=== PATIENT | female | born 1935 | race Caucasian/White ===

== ENCOUNTER 2022-10-23 06:53 | Inpatient (IN) | payer OTHER ==
[~2022-10-23] VITALS: Ht 147.3 cm; Wt 71.4 kg
[~2022-10-23 06:53] MED LIST: ASPI-492 PO; FURO20TA3 PO; LEVO88TA4 PO; LIS5T PO; NORT25CA PO; POT10T PO; SIMV-8 PO
[2022-10-23 07:35] LABS: Basophils # (auto) 0 10 ^3/uL (0-0.2); Basophils % (auto) 0.2 % (0.0-2.0); Eosinophils # (auto) 0.1 10 ^3/uL (0-0.8); Eosinophils % (auto) 0.8 % (0.0-7.0); Hematocrit 44.1 % (36.0-46.0); Hemoglobin 14.9 g/dL (12.2-16.2); Lymphocytes # (auto) 0.5 10 ^3/uL (0.4-5.4); Lymphocytes % (auto) 7.7 % (10.0-50.0); Mean Corpuscular Hemoglobin 31.7 pg (28.0-32.0); Mean Corpuscular Hgb Conc. 33.8 g/dL (32.0-36.0); Mean Corpuscular Volume 93.8 fL (80.0-100.0); Monocytes # (auto) 0.4 10 ^3/uL (0-1.3); Monocytes % (auto) 6.5 % (0.0-12.0); Neutrophils # (auto) 5.8 10 ^3/uL (1.6-8.6); Neutrophils % (auto) 84.8 % (37.0-80.0); Nucleated Red Blood Cells % 0.1 %; Red Cell Distribution Width 13.8 % (11.8-14.3); White Blood Cell 6.9 10^3/uL (4.4-10.8)
[2022-10-23 07:48] LABS: Albumin 3.2 g/dL (3.4-5.0); Calcium 8.5 mg/dL (8.5-10.1); Magnesium 1.9 mg/dL (1.6-2.6); Potassium 3.6 mmol/L (3.5-5.1)
[2022-10-23 07:51] LABS: BUN/Creatinine Ratio 28.1 (10.0-20.0); Bilirubin, Total 0.7 mg/dL (0.2-1.0); Total Protein 6.4 g/dL (6.4-8.2)
[2022-10-23] MEDS ORDERED: SODIUM CHLORIDE 0.9% 1,000 ML IV ONE ×2 (08:45→13:15)
[2022-10-23 11:33] LABS: Urine Bacteria NONE SEEN /hpf (None Seen); Urine Blood Negative /uL (Negative); Urine WBC 11 /hpf (0 - 5)
[2022-10-23] MEDS ORDERED: metroNIDAZOLE 500MG/100ML 100 ML IV ONE ×2 (12:00→20:00)
[2022-10-23] MEDS ORDERED: MECLIZINE HCL 25 MG TAB PO ONE (12:00)
[2022-10-23] MEDS ORDERED: diazePAM 5 MG TAB PO ONE (15:00)
[2022-10-23] MEDS ORDERED: ACETAMINOPHEN 325 MG TAB PO PRN (18:30)
[2022-10-23] MEDS ORDERED: ONDANSETRON HCL 4 MG/2 ML VIAL IV PRN (18:30)
[2022-10-23] MEDS ORDERED: PANTOPRAZOLE 40 MG/10 ML VIAL INJ IV ONE (18:30)
[2022-10-23] MEDS ORDERED: cefTRIAXone 1GM/50ML D5W 50 ML IV ONE (18:30)
[2022-10-23] MEDS ORDERED: levoFLOXacin 500MG 100 ML IV ONE (19:00)
[2022-10-23 19:18] LABS: Cholesterol 123 mg/dL (< 200); Triglycerides 51 mg/dL (< 150)
[2022-10-23 19:20] LABS: HDL Cholesterol 50 mg/dL (40-59); LDL Cholesterol 69 mg/dL (< 100)
[2022-10-23] MEDS: SODIUM CHLORIDE 0.9% 1,000 ML IV SCH (21:50)
[2022-10-23] MEDS: ATORVASTATIN 20 MG TAB PO SCH (21:50)
[2022-10-23] MEDS: metroNIDAZOLE 500MG/100ML 100 ML IV SCH (21:50)
[2022-10-23] MEDS: NORTRIPTYLINE HCL 25 MG CAP PO SCH (22:00)
[2022-10-24 07:08] LABS: Basophils # (auto) 0 10 ^3/uL (0-0.2); Basophils % (auto) 0.3 % (0.0-2.0); Eosinophils # (auto) 0.1 10 ^3/uL (0-0.8); Eosinophils % (auto) 2.3 % (0.0-7.0); Hematocrit 38.4 % (36.0-46.0); Hemoglobin 12.8 g/dL (12.2-16.2); Lymphocytes # (auto) 0.4 10 ^3/uL (0.4-5.4); Lymphocytes % (auto) 13.4 % (10.0-50.0); Mean Corpuscular Hemoglobin 31.8 pg (28.0-32.0); Mean Corpuscular Hgb Conc. 33.2 g/dL (32.0-36.0); Mean Corpuscular Volume 95.9 fL (80.0-100.0); Monocytes # (auto) 0.5 10 ^3/uL (0-1.3); Neutrophils # (auto) 2.3 10 ^3/uL (1.6-8.6); Nucleated Red Blood Cells % 0.4 %; Red Blood Cells 4.01 10^6/uL (4.0-5.20); Red Cell Distribution Width 14.2 % (11.8-14.3); White Blood Cell 3.3 10^3/uL (4.4-10.8)
[2022-10-24 07:30] LABS: Albumin 2.7 g/dL (3.4-5.0); Calcium 7.5 mg/dL (8.5-10.1); Potassium 3.9 mmol/L (3.5-5.1)
[2022-10-24 07:33] LABS: BUN/Creatinine Ratio 21.6 (10.0-20.0); Bilirubin, Total 0.4 mg/dL (0.2-1.0); Total Protein 5.8 g/dL (6.4-8.2)
[2022-10-24] MEDS: LEVOTHYROXINE SODIUM 100 MCG TAB PO SCH (07:35)
[2022-10-24] MEDS ORDERED: cefTRIAXone 1GM/50ML D5W 50 ML IV SCH (09:00)
[2022-10-24] MEDS: metroNIDAZOLE 500MG/100ML 100 ML IV SCH ×3 (09:03→22:03)
[2022-10-24] MEDS ORDERED: LORazepam 2MG/ML-1ML VIAL IV PRN (09:45)
[2022-10-24] MEDS: LISINOPRIL 10 MG TAB PO SCH (10:00)
[2022-10-24] MEDS: ENOXAPARIN SOD 40 MG/0.4 ML SYRINGE SC SCH (10:31)
[2022-10-24] MEDS: PANTOPRAZOLE 40 MG/10 ML VIAL INJ IV SCH (10:31)
[2022-10-24] MEDS: ASPirin-EC 81 mg tab PO SCH (10:31)
[2022-10-24] MEDS: SODIUM CHLORIDE 0.9% 1,000 ML IV SCH ×2 (11:27→21:10)
[2022-10-24] MEDS: levoFLOXacin 250MG 50 ML IV SCH (11:29)
[2022-10-24 17:23] VITALS: BP_SYST 136; BP_SYST 158; BP_DIAS 42; BP_DIAS 97
[2022-10-24 18:54] VITALS: BP 158/97
[2022-10-24] MEDS ORDERED: CETI1TAB36 PO (19:53)
[2022-10-24 22:00] VITALS: BP 135/62
[2022-10-24] MEDS: NORTRIPTYLINE HCL 25 MG CAP PO SCH (22:00)
[2022-10-24] MEDS: ATORVASTATIN 20 MG TAB PO SCH (22:04)
[2022-10-25 05:00] VITALS: BP 142/57
[2022-10-25] MEDS: LEVOTHYROXINE SODIUM 100 MCG TAB PO SCH (06:05)
[2022-10-25] MEDS: metroNIDAZOLE 500MG/100ML 100 ML IV SCH ×3 (06:05→22:15)
[2022-10-25 08:00] VITALS: BP 142/62
[2022-10-25] MEDS: ASPirin-EC 81 mg tab PO SCH (10:06)
[2022-10-25] MEDS: ENOXAPARIN SOD 40 MG/0.4 ML SYRINGE SC SCH (10:06)
[2022-10-25] MEDS: PANTOPRAZOLE 40 MG/10 ML VIAL INJ IV SCH (10:06)
[2022-10-25] MEDS: LISINOPRIL 10 MG TAB PO SCH (10:07)
[2022-10-25] MEDS: levoFLOXacin 250MG 50 ML IV SCH (10:08)
[2022-10-25 12:00] VITALS: BP 133/70
[2022-10-25] MEDS: SODIUM CHLORIDE 0.9% 1,000 ML IV SCH (12:06)
[2022-10-25 16:00] VITALS: BP 156/62
[2022-10-25 22:00] VITALS: BP 142/58
[2022-10-25] MEDS: ATORVASTATIN 20 MG TAB PO SCH (22:14)
[2022-10-25] MEDS: NORTRIPTYLINE HCL 25 MG CAP PO SCH (22:15)
[2022-10-26 05:00] VITALS: BP 126/52
[2022-10-26] MEDS: SODIUM CHLORIDE 0.9% 1,000 ML IV SCH ×2 (05:45→19:38)
[2022-10-26] MEDS: metroNIDAZOLE 500MG/100ML 100 ML IV SCH ×3 (05:45→22:51)
[2022-10-26] MEDS: LEVOTHYROXINE SODIUM 100 MCG TAB PO SCH (07:15)
[2022-10-26 08:00] VITALS: BP 136/60
[2022-10-26] MEDS: levoFLOXacin 250MG 50 ML IV SCH (09:36)
[2022-10-26] MEDS: PANTOPRAZOLE 40 MG/10 ML VIAL INJ IV SCH (09:37)
[2022-10-26] MEDS: ASPirin-EC 81 mg tab PO SCH (09:38)
[2022-10-26] MEDS: LISINOPRIL 10 MG TAB PO SCH (09:39)
[2022-10-26] MEDS: ENOXAPARIN SOD 40 MG/0.4 ML SYRINGE SC SCH (09:40)
[2022-10-26 12:00] VITALS: BP 123/63
[2022-10-26] MEDS ORDERED: FUROSEMIDE 20 MG TAB PO SCH (12:00)
[2022-10-26] MEDS ORDERED: POTASSIUM CHL 10 Meq TABLET PO SCH (12:00)
[2022-10-26 16:00] VITALS: BP 120/54
[2022-10-26 20:00] VITALS: BP 112/65
[2022-10-26 22:00] VITALS: BP 133/54
[2022-10-26] MEDS: ATORVASTATIN 20 MG TAB PO SCH (22:29)
[2022-10-26] MEDS: NORTRIPTYLINE HCL 25 MG CAP PO SCH (22:30)
== END 2022-10-27 01:03 | disposition short-term general hospital (02) | DRG 371 ==
LOC: EDBD 06:53 → EDUNIT# 06:53 → ER 06:53 → OVERFLOW 18:27 → CENTRAL 10-24 17:05
PROVIDERS: ADMIT Nurse Practitioner Family; ATTEND Internal Medicine
DX: A04.72 Enterocolitis due to Clostridium difficile, not specified as recurrent (principal); I63.9 Cerebral infarction, unspecified; N30.00 Acute cystitis without hematuria; K57.32 Diverticulitis of large intestine without perforation or abscess without bleeding; K80.20 Calculus of gallbladder without cholecystitis without obstruction; K76.0 Fatty (change of) liver, not elsewhere classified; D25.9 Leiomyoma of uterus, unspecified; E03.9 Hypothyroidism, unspecified; E78.5 Hyperlipidemia, unspecified; E86.0 Dehydration; F17.200 Nicotine dependence, unspecified, uncomplicated; F41.9 Anxiety disorder, unspecified; I11.0 Hypertensive heart disease with heart failure; I50.9 Heart failure, unspecified; Z20.822 Contact with and (suspected) exposure to COVID-19; E66.01 Morbid (severe) obesity due to excess calories; Z88.0 Allergy status to penicillin; Z68.32 Body mass index [BMI] 32.0-32.9, adult; Z79.899 Other long term (current) drug therapy
CPT/HCPCS: 36415; 70450; 70551; 71045; 74176; 76705; 80053; 80061; 81001; 83036; 83605; 83690; 83735; 84443; 84484; 85025; 87426; 93005; 93306; 93886; 95819; 96361; 96365; 96367; 96375; 97110; 97116; 97163; 97530; C9113; G0378; J1956; J3490